=== PATIENT | male | born 1955 | race Caucasian/White ===

== ENCOUNTER 2019-08-02 10:45 | Inpatient (IN) | payer MEDICARE, BC ==
[~2019-08-02] VITALS: Ht 177.8 cm; Wt 89.8 kg
--- OUTSIDE RECORDS SUMMARY | ~2019-08-02 | XMS | Clinical Summary ---
Demographics + + + | Address | [address] | | | [place] [address] | + + + | Home Phone | | + + + | Preferred Language | Unknown | + + + | Marital Status | | + + + | Moravian Affiliation | Unknown | + + + | Race | Unknown | + + + | Ethnic Group | Unknown | + + + Author + + + | Author | [facility] | | | and [place] | + + + | Organization | [facility] | | | and [place] | + + + | Address | Unknown | + + + | Phone | Unavailable | + + + Support + + +---------+ + | Name | Relationship | Address | Phone | + + +---------+ + | None,Listed | ECON | Unknown | | + + +---------+ + Care Team Providers + +------+ + | Care Rating Specialist Name | Role | Phone | + +------+ + | Elmo Jaimes MD | PCP | | + +------+ + Allergies Not on File Medications Not on file Active Problems Not on file Social History + +-------+ +--------+------+ | Tobacco Use | Types | Packs/Day | Years | Date | | | | | Used | | + +-------+ +--------+------+ | Never Assessed | | | | | + +-------+ +--------+------+ + + + | Sex Assigned at | Date Recorded | | | | + + + | Not on file | | + + + + + + + | Job Start Date | Occupation | Industry | + + + + | Not on file | Not on file | Not on file | + + + + + + + + | Travel History | Travel Start | Travel End | + + + + + + | No recent travel history available. | + + Last Filed Vital Signs Not on file Plan of Treatment + + + + + | Health Maintenance | Due Date | Last Done | Comments | + + + + + | Vaccine: | | | | | Dtap/Tdap/Td (1 - | 2 | | | | Tdap) | | | | + + + + + | Vaccine: Zoster (1 | | | | | of 2) | 3 | | | + + + + + | Vaccine: | | | | | Pneumococcal 65+ | 8 | | | | Low/Medium Risk (1 | | | | | of 2 - PCV13) | | | | + + + + + | Vaccine: Influenza | | | | | (#1) | 9 | | | + + + + + Results Not on filefrom Last 3 Months Insurance +-------+--------+ +--------+-------+---------+------+ | Payer | Benefi | Subscriber | Effect | Phone | Address | Type | | | t Plan | ID | jasmin | | | | | | / | | Dates | | | | | | Group | | | | | | +-------+--------+ +--------+-------+---------+------+ | BCBS | BCBS | [id number] | 10/02/19 | | | PPO | | | [place] | | 16-Pre | | | | | | L FEP | | sent | | | | +-------+--------+ +--------+-------+---------+------+ + +--------+ +--------+ + + | Guarantor Name | Accoun | Relation to | Date | Phone | Billing Address | | | t Type | Patient | of | | | | | | | | | | + +--------+ +--------+ + + | Michael Mcpherson | Person | Self [birth year] | [address] | | | al/Fam | | 1955 | [phone] | [place] | | | n[place]ol | | | [address] (Home) | [phone] | + +--------+ +--------+ + + Advance Directives Patient has advance care planning documents on file. For more information, please contact:[facility] [place] [address]"
--- OUTSIDE RECORDS SUMMARY | ~2019-08-02 | XMS | Clinical Summary ---
Demographics + + + | Address | [address] | | | [place] [address] | + + + | Home Phone | | + + + | Preferred Language | Unknown | + + + | Marital Status | | + + + | Advent Affiliation | Unknown | + + + | Race | Unknown | + + + | Ethnic Group | Unknown | + + + Author + + + | Author | [facility] | | | and [place] | + + + | Organization | [facility] | | | and [place] [...] Team Providers + +------+ + | Care Head Transfer Clerk Name | Role | Phone | + [...] +-------+--------+ +--------+-------+---------+------+ | BCBS | BCBS | [id number] | 10/02/19 | | | PPO | [...] Person | Self | [birth year] | [id number] | | | al/Fam | | 1955 | [phone] | [place] | | | nichol | | | [address] (Home) | [phone] | + +--------+ +--------+ + + Advance Directives Patient has advance care planning documents on file. For more information, please contact:[facility] [place] [address]"
--- OUTSIDE RECORDS SUMMARY | ~2019-08-02 | XMS | Clinical Summary ---
Demographics + + + | Address | [address] | | | [place] [address] | + + + | Home Phone | | + + + | Preferred Language | Unknown | + + + | Marital Status | | + + + | Muslim Affiliation | Unknown | + + + | Race | Unknown | + + + | Ethnic Group | Unknown | + + + Author + + + | Author | [facility] | | | and [place] | + + + | Organization | [facility] | | | and [place] | [...] Team Providers + +------+ + | Care Mold Design Engineer Name | Role | Phone | + [...] +-------+--------+ +--------+-------+---------+------+ | BCBS | BCBS | [id number] | 10/02/19 | | | PPO | [...] Person | Self | [birth year] | [address] | | | al/Fam | | 1955 | [phone] | [place] | | | n[place]ol | | | 7 (Home) | [phone] | + +--------+ +--------+ + + Advance Directives Patient has advance care planning documents on file. For more information, please contact:[facility] [place] [address]"
[2019-08-02] MEDS ORDERED: ZITHROMAX250 MG PO (10:57)
[2019-08-02] MEDS ORDERED: CEFUROXIME500 MG PO (10:57)
[2019-08-02] MEDS ORDERED: LEVOTHYROXINE88 MCG PO (10:57)
--- NOTE | 2019-08-02 14:45 | NUR ---
PATIENT ARRIVED TO ROOM 127 VIA STRETCHER WITH HIS AT THE BEDSIDE. PATIENT WAS ABLE TO STAND AND TRANSFER WITH NO ASSIST. OXYGEN AT 3L NC WITH SPO2 AT 94%. WILL CONTINUE TO CLOSELY MONITOR.
--- NOTE | 2019-08-02 15:30 | NUR ---
PATIENT RESTING IN BED. FOOD ORDERED AND AT THE BEDSIDE. MEDICATIONS ADMINISTERED WITH NO ISSUES. ASSESSMENT COMPLETED. PATIENT BREATH SOUNDS CLEAR AND DIMINISHED IN BASES. PATIENT STATED THAT HE WAS A FORECLOSURE [place] FOR OVER 40 YEARS. PATIENT IS CURRENTLY ON 3L NC WITH SPO2 AT 92%. BOWEL TONES ACTIVE. PATIENTS EXTREMITIES COLD AND PULSES ARE FAINT. PATIENT IS ALERT AND TALKATIVE. CALLED RT TO UPDATE THAT PATIENT HAS ORDERS. NO OTHER NEEDS AT THIS TIME. WILL CONTINUE TO CLOSELY MONITOR.
--- NOTE | 2019-08-02 15:59 | NUR ---
MED REC COMPLETED.
--- NOTE | 2019-08-02 17:00 | NUR ---
PATIENT UP TO THE BATHROOM WITH RN ASSIST. PATIENT IS STABLE ON HIS FEET, BUT HIS HR INCREASED TO 140'S WITH AMBULATION. PATIENT HAS INCREASED SOB WITH AMBULATIONS WELL. PT DNEIES DIZZINESS. URINE DARK AND FOUL SMELLING. UPDATED MD LOUIS OF RESULTS AND WILL COMPLETE ORTHOSTATIC VITAL SIGNS. NO OTHER NEEDS AT THIS TIME. ICE WATER AT THE BEDSIDE. PT DNEIES ANY DINNER AT THIS TIME. WILL CONTINUE TO CLOSELY MONITTOR.
--- NOTE | 2019-08-02 17:20 | NUR ---
CALLED MD LOUIS TO UPDATE ORTHOSTATIC VALUES. PER NEW ORDER FOR LR 1000MLS OVER 2 HOURS. WILL CONTINUE TO CLOSELY MONITOR. PATIENT RELAXING IN BED AT THIS TIME.
--- NOTE | 2019-08-02 18:44 | NUR ---
PATIENT RESTING IN BED AT THIS TIME. PATIENT DENIES ANY NEEDS. LIGHTS OUT TO ENCOURAGE REST. WILL CONTINUE TO CLOSELY MONITOR.
--- NOTE | 2019-08-02 19:50 | NUR ---
ASSESSMENT DONE. LUNGS HAVE CRACKLES JAIL UP WITH FEW COARSE SOUNDS ON LEFT SIDE. RESP SLIGHTLY LABORED WITH 3L/O2/NC. PT REPORTS FEELING "A LITTLE BIT BETTER I THINK" SINCE ARRIVAL TO THE HOSPITAL. PT C/O BEING COLD, WARM BLANKET PROVIDED. IVF BOLUS HAS JUST COMPLETED AND FLUIDS NOW RUNNING AT 125ML/HR. WILL CONT TO MONITOR. AT BEDSIDE.
--- NOTE | 2019-08-02 20:30 | NUR ---
DR LOUIS IN TO SEE PT
--- NOTE | 2019-08-02 22:19 | NUR ---
PT C/O INSOMNIA, CALL TO DR LOUIS ORDER GIVEN FOR 1MG MELATONIN.
--- NOTE | 2019-08-02 22:30 | NUR ---
PT GIVEN MELATONING. ASKED IF HE WOULD LIKE A NEB TX AND HE STATES YES, RESP SOMEWHAT LABORED AND O2 HAS BEEN TURNED UP TO 4L/O2/NC. RT IN TO GIVE TX AND PT REPORTS FEELING LESS SOB AFTER AND IS NOW READY TO TRY TO SLEEP. RESTING HR 107, RR 21 SPO2 92% ON 4L/NC.
--- NOTE | 2019-08-03 00:30 | NUR ---
PT CALLS TO REQUEST NEB TX. HAS NOT BEEN ABLE TO SLEEP. RT IN TO DO TX, PT REPORTS FEELING LESS SOB AFTER. ASSESSMEN UNCHANGED FROM EARLIER.
--- NOTE | 2019-08-03 02:30 | NUR ---
PT CALLS TO C/O NASAL CONGESTION REQUESTING NASAL SPRAY. GIVEN SALINE FLUSH TO HELP CLEAR NARES, ALSO PUT ON OXYMASK SPO2 WAS 88% ON 4L/NC/O2, SATS UP TO 90% 4L/OXYMASK. ALSO ASKED PT TO GET UP AND ATTEMPT TO VOID ALTHOUGH HE SAID HE DID NOT HAVE THE URGE. WAS ABLE TO STAND AT BEDSIDE AND VOID 300ML [place] URINE, HR UP TO 100 WHILE UP THEN BACK DOWN QUICKLY TO 85.
--- NOTE | 2019-08-03 03:20 | NUR ---
CALL TO DR LOUIS, UPDATED REGARDING URINE OUTPUT, VS AND PT OVERALL CONDITION, REQUEST FOR NASAL SPRAY FOR NASAL CONGESTION. ORDER GIVEN FOR FLONASE. PT INFORMED, AWAITING MED FROM [facility]PHARMACY.
--- NOTE | 2019-08-03 03:55 | NUR ---
RT IN TO DO NEB TX PER REQUEST
--- NOTE | 2019-08-03 06:18 | EKG ---
[facility] [address] [place] [address] Signed Normal sinus rhythm with sinus arrhythmia Normal ECG No previous ECGs available Confirmed by LARRY LOUIS MD ([id number]) on 08/03/2019 6:17:49 AM Electronically Signed By: LARRY LOUIS MD 08/03/19 0618 PATIENT NAME: BECCA PRICE Electrocardiogram DATE OF : 51 PHYSICIAN: LARRY LOUIS MD REPORT #: [id number] REPORT IS CONFIDENTIAL AND NOT TO BE RELEASED WITHOUT AUTHORIZATION
--- NOTE | 2019-08-03 07:30 | NUR ---
PATIENT SHIFT REPORT RECIEVED FROM GREENHOUSE OR NURSERY TRANSPLANTER RN. PATIENT IS RESTING IN BED AT THIS TIME ON OXYMASK 4L. PATIENT IS TOLERATING WELL. PER REPORT PATIENT HAS HAD INCREASED CONGESTION THAT IS IRRITATING THE PATIENT. WILL CONTINUE TO CLOSELY MONITOR.
--- NOTE | 2019-08-03 07:53 | NUR ---
PATIENT REQUESTING A NEB TREATMENT, RN NOTIFIED. PATIENT ORDERED BREAKFAST AND PERFORMED AM CARE. CALL LIGHT IN REACH. NO OTHER NEEDS AT THIS TIME.
--- NOTE | 2019-08-03 08:38 | NUR ---
PATIENT STOOD AT THE EDGE OF THE BED TO VOID IN URINAL, PATIENT BACK IN BED NOW WITH CALL LIGHT IN REACH, NO OTHER NEEDS AT THIS TIME.
--- NOTE | 2019-08-03 09:30 | NUR ---
PATIENT RESTING IN BED. PATIENT STATES "I FEEL A LITTLE BIT BETTER THIS MORNING, BUT NOT MUCH. ASSESSMENT COMPLETED. PATIENT BREATH SOUNDS CLEAR ON LEFT AND DIMINISHED. CRACKLES NOTED THROUGHOUT THE RIGHT SIDE. OXYMASK IN PLACE AT 4L WITH SPO2 93%. BOWEL TONES ACTIVE. EXTREMITIES WARM, PULSES STRONG. PATIENT IS VERY TALKATIVE WITH STAFF TALKING ABOUT HIS LOVE FOR THE OUTDOORS. WILL CONTINUE TO CLOSELY MONITOR.
--- NOTE | 2019-08-03 10:29 | NUR ---
PATIENT RESTING IN BED WITH HIS AT THE BEDSIDE. ALL QUESTIONS ANSWERED. PATIENT DENIES ANY NEEDS AT THIS TIME.
--- NOTE | 2019-08-03 10:54 | NUR ---
PATIENT CALLED FOR ASSISTANCE TO VOID. PATIENT STOOD AT THE EDGE OF THE BED AND VOIDED WITH A URINAL. PATIENT BACK IN BED, CALL LIGHT IN REACH. FAMILY IN ROOM. NO OTHER NEEDS AT THIS TIME.
--- NOTE | 2019-08-03 11:30 | NUR ---
PATIENT RESTING IN BED AT THIS TIME. ASSESSMENT COMPLETED AND REMAINS UNCHANGED AT THIS TIME. WILL CONTINUE TO CLOSELY MONITOR. NO OTHER NEEDS AT THIS TIME.
--- NOTE | 2019-08-03 13:30 | NUR ---
PATIENT CHATING WITH THIS RN ABOUT HIS LOVE FOR THE OUTDOORS. PATIENT DNEIES WANTING TO EAT AT THIS TIME AND STATES HE IS STILL FEELING ABOUT THE SAME. WILL CONTINUE TO CLOSELY MONITOR. NO OTHER NEEDS AT THIS TIME.
--- NOTE | 2019-08-03 15:31 | NUR ---
PATIENT RESTING IN BED. GAVE PRN TYLENOL FOR GENERALIZED PAIN AND PSEUDAPHED FOR CONGESTION. PATIENT IS VERY TALKATIVE. NOTED PATIENTS RR IS 25-32 PRIOR TO ENTERING ROOM. PATIENT DENIES FEELING ANY DIFFERENT THAN EARLIER IN THE SHIFT. ALL OTHER VIALS REMAIN STABLE. WILL CONTINUE TO CLSOELY MONITOR.
--- NOTE | 2019-08-03 17:30 | NUR ---
PATIENT SPO2 DECREASED TO MID 80'S. RT AND MD DEJESUS IN TO SEE PATIENT D/T OXYMASK UP TO 8L FROM 4L EARLIER IN THE SHIFT. PATIENTS HR AND RR INCREASED WELL. PATIENT DOWN FOR CHEST CT WITH THIS R AND TOLERATED WELL. WILL AWAIT RESULTS FOR UPDATED PLAN OF CARE. PATIENT REMAINS ON 8L OXYMASK AT THIS TIME WITH SPO2 92%. RR 26-32. HR 100. WILL CONTINUE TO CLOSELY MONITOR.
--- NOTE | 2019-08-03 18:59 | NUR ---
MD DEJESUS CALLED. NEW ORDERS TO START HIGH FLOW OXYGEN AND STEROID MEDICATION. MD WILL COME UPDATE PATIENT AND FAMILY ON RESULTS OF CHEST CT. WILL CONTINUE TO CLOSELY MONITOR. PATIENT IS RESTING IN BED AT THSI TIME. RT SET UP HIGH FLOW AT THE BEDSIDE, PATIENT TOLERATING WELL.
--- NOTE | 2019-08-03 19:36 | NUR ---
SHIFT REPORT RECEIVED. PATIENT RESTING IN BED. FAMILY AT BEDSIDE. SPECIMEN CUP PROVIDED WITH VERBAL INSTRUCTIONS FOR SPUTUM COLLECTION. PATIENT VERBALIZED UNDERSTANDING. DENIES FURTHER NEEDS.
--- NOTE | 2019-08-03 20:00 | NUR ---
PATIENT REPORTS DISCOMFORT WITH VAPOTHERM HIGH FLOW AND LARGER NASAL CANULA. DENIES FEELING SOB. 02 SAT 90% ON 70% FiO2. LUNGS ARE DIMINISHED THROUGHOUT WITH CRACKLES IN IVONNE BASES. PATIENT DENIES ANY OTHER CONCERNS. IS WANTING TO HAVE SLEEP MEDICATION AFTER RT ASSESSMENT. PATIENT UP TO BEDSIDE TO VOID, TOLERATED WELL. IV FLUIDS PER ORDER, SITE WNL.
--- NOTE | 2019-08-03 21:45 | NUR ---
PATIENT CONTINUES TO BE RESTLESS AND UNCOMFORTABLE. DENIES OFFERS FOR ROOM TEMP CHANGES, COOL WASH CLOTH, OR OPEN DOOR TO HELP PATIENT FEEL LESS WARM. TEMP LOW GRADE, ORAL 99.4 F. PATIENT DENIES FEELING ANY AFFECTS FROM SLEEP AID. DISCUSSED WITH DR. DEJESUS, NEW ORDERS RECEIVED AND VERIFIED VIA REPEAT BACK.
--- NOTE | 2019-08-03 22:05 | NUR ---
PATIENT UP TO BEDSIDE TO VOID. TOLERATES WELL. HR GOING FROM 95 TO 118 WITH ACTIVITY. PATIENT REPORTS THAT THE VAPOTERM "MUST BE WORKING, THIS IS THE BEST I'VE FELT IN A WHILE". ONE TIME DOSE OF SLEED MEDICATION PROVIDED. ENCOURAGED PATIENT TO REST.
--- NOTE | 2019-08-03 22:57 | NUR ---
PATIENT APPEARS TO BE SLEEP SOUNDLY. HOB ELEVATED. VAPOTHERM IN PLACE. O2 >90%
--- NOTE | 2019-08-04 01:00 | NUR ---
PATIENT APPEARED TO BE SLEEPING LIGHTLY, WOKE WHEN RN ENTERED ROOM. DENIES TOILETING NEEDS. VS STABLE. AFEBRILE, ORAL TEMP 98.0 F. LUNGS CONTINUE TO BE DIMINISHED WITH CRACKLES IN THE BASES. O2 SAT 90% ON 70% Fi02.
--- NOTE | 2019-08-04 02:05 | NUR ---
PATIENT UP TO VOID. BACK TO BED, USING TABLET AND DENIES THE ABILITY TO SLEEP ANYMORE. ENCOURAGED PATIENT TO REDUCE STIMULATION AND ATTEMPT TO REST.
--- NOTE | 2019-08-04 06:11 | NUR ---
LAB IN ROOM FOR BLOOD DRAW. PATIENT REPORTS FEELING BETTER THIS MORNING. DOES NOT APPEAR TO BE IN ANY RESPIRTORY DISTRESS. O2 SAT 91% ON 70% FiO2 VIA VAPOTHERM. PATIENT IS AFEBRILE, VS STABLE. LUNGS CONTINUE TO BE DIM THROUGHOUT WITH CRACKLES IN THE IVONNE BASES. PATIENT UP TO VOID AT BEDSIDE. TOLERATES WELL. FRESH ICE WATER PROVIDED. NO FURTHER NEEDS AT THIS TIME.
--- NOTE | 2019-08-04 07:30 | NUR ---
PATIENT RESTING IN BED ON VAPOTHERM AT THIS TIME. REPORT RECIEVED FROM VEHICLE FARE COLLECTOR RN. PATIENT STATES HE FEELS BETTER THIS AM AFTER COUGHING UP SOME PHLEGM EARLIER IN THE NIGHT. WILL CONTINUE TO CLOSELY MONITOR.
--- NOTE | 2019-08-04 09:00 | NUR ---
PATIENT RESTING IN BED ON VAPOTHERM A20L 70%FIO2. PATIENT SPO2 90-93%. PATIENT IS TOELRATING WELL. PATIENT STATES, "I AM FEELING A LITTLE BETTER THIS AM". PATIENT DOES NO HAVE MUCH OF AN APPETITE, ENSURE ORDERED. BOWEL TONES ACTIVE. PATIENTS BREATH SOUNDS ARE DIMINISHED AND CRACKLES NOTED THROUGHOUT. PATIENT RR 26. PATIENT IS ABLE TO STAND AT THE EDGE OF THE BED TO SE URINAL. PATIENTS HR 115 WITH STANDING AND BACK TO 80'S WHEN RESTING. MORNIGN CARES PROVIDED. PATIENT DENEIS ANY OTHER NEEDS AT THIS TIME. WILL CONTINUE TO CLOSELY MONITOR.
--- NOTE | 2019-08-04 10:57 | NUR ---
PATIENT RESTING IN BED AND VISITING WITH FRIENDS/FMAILY. PATIENT SPO2 96% AT THSI TIME. CONTINUED TO ENCOURAGE DEEP BREATHING AND COUGHING AND USING THE INSENTIVE SPIROMETER AND ACCAPELLA DEVICES. PATIENT IS AGREEABLE TO TREATMENT. WILL CONTINUE TO CLOSELY MONITOR.
--- NOTE | 2019-08-04 11:00 | NUR ---
PATIENT RESTING IN BED WITH FAMILY/FRIENDS AT BEDSIDE. PATIENT IS VERY TALKATIVE AT THIS TIME. FRESH WATER AT THE BEDSIDE. WILL CONTINUE TO CLOSELY MONITOR.
--- NOTE | 2019-08-04 11:39 | NUR ---
MD DEJESUS IN AND VISITED WITH PATIENT AND HIS FAMILY/FRIENDS. PATIENT APPEARS TO BE DOING BETTER THIS AM WITH CHANGES IN TREATMENT YESTERDAY EVENING. MD AND STAFF ENCOURAGED PATIENT TO USE INCENTIVE SPIROMETER AND AQAPELLA. PATIENT IS AGREEABLE TO TREATMENT AND PLAN OF CARE. WILL CONTINUE TO VAPOTHERM AT THIS TIME AND CLOSELY MONITOR AND TITRATE APPLICABLE.
--- NOTE | 2019-08-04 12:30 | NUR ---
THIS RN IN TO ASSIST PATIENT UP TO USE URINAL. PATIENT ABLE TO USE URINAL ON HIS OWN ONCE STANDING. PATIENT BACK TO BED. LUNCH AT THE BEDSIDE. FAMILY LEFT AT THIS TIME TO GO GET THEIR LUNCH. PATIENT DENEIS STOOL SOFTENER MEDICATION AT THIS TIME. PATIENT STATES HE NORAMLLY GOES EVERY 2-3 DAYS. WILL CONTINUE TO MONITOR. NO OTHER NEEDS AT THIS TIME.
--- NOTE | 2019-08-04 14:03 | NUR ---
MORE VISITORS IN TO SEE PATIENT. BROUGHT MORE CHAIRS IN FOR FRIENDS/FAMILY. PATIENT DENIES ANY NEEDS AT THIS TIME. FRESH WATER AT THE BEDSIDE. WILL CONTINUE TO CLOSELY MONITOR.
--- NOTE | 2019-08-04 16:00 | NUR ---
PATIENT ASSESSMENT COMPELTED AND REMAINS UNCHANGED FROM PRIOR ASSESSMENT. PATIENT RESITNG IN BED. ALL VISITORS LEFT AT THIS TIME. PATIENT ASSISTED TO BEDSIDE TO URINATE. PATIENT NOW BACK IN BED RESTING AT THIS TIME. FRESH WATER PROVIDED AT THE BEDSIDE. PATIENT STATED HE WAS GOING TO USE THE INCENTIVE SPIROMETER AND AQAPELLA. CONTINUED TO ENCOURAGE USE. NO OTHER NEEDS AT THIS TIME. WILL CONTINUE TO CLOSELY MONITOR.
--- NOTE | 2019-08-04 18:06 | NUR ---
THIS RN IN VISITING WITH PATIENT AND HIS FMAILY. VITALS COMPLETED. PATIENT IS VERY TALKATIVE THIS EVENING. PATIENT STATES HE IS STILL FEELING BETTER THAN WHEN HE CAME IN. NO OTHER NEEDS AT THIS ITME. WILL CONTINUE TO CLSOELY MONITOR.
--- NOTE | 2019-08-04 19:30 | NUR ---
PT AWAKE IN BED, PLAN OF CARE DISCUSSED WITH PT. DENIES NEEDS AT THIS TIME.
--- NOTE | 2019-08-04 20:45 | NUR ---
PT HAS JUST FINISHED NEB TX. ASSESSMENT DONE. CONT ON VAPOTHERM 20L/50% FIO2 SPO2 88-96% DEPENDING ON POSITIONING OF PT. MUCH LESS RESP EFFORT TONIGHT THAN LAST NIGHT. LUNGS HAVE LESS CRACKLES WELL, CRACKLES HEARD IN BASES AND FEW MIDWAY UP, FEW COARSE SOUNDS HEARD IN UPPER LOBES. PT DENIES PAIN OR NEEDS AT THIS TIME.
--- NOTE | 2019-08-04 21:30 | NUR ---
DR DEJESUS IN TO ROUND ON PT. DISCUSSED PLAN OF CARE WITH PT, ANSWERED QUESTIONS. FIO2 TURNED DOWN TO 50% THEN 40%, SATS DOWN TO 88% ON 40% SO TURNED BACK TO 50%.
--- NOTE | 2019-08-05 01:45 | NUR ---
RT IN TO CHECK ON PT, SPO2 88% SO FIO2 TURNED UP TO 60%.
--- NOTE | 2019-08-05 02:31 | NUR ---
PT CALLS REQUESTING TUMS OR ANTACID FOR "BURNING". TUMS GIVEN. UP TO VOID, HR UP TO 105 WHEN UP THEN DOWN TO 75 IN BED. WILL CALL IF TUMS DONT HELP.
--- NOTE | 2019-08-05 04:37 | NUR ---
UP TO VOID AND BACK TO BED. PT STATES "THAT ONE HURT THAT TIME, IT TOOK A LOT OUT OF ME". ALL VS REMAIN UNCHANGED. LUNGS HAVE FEW CRACKLES IN BASES AND COARSE SOUNDS MIDWAY UP. WILL CALL WITH NEEDS.
--- NOTE | 2019-08-05 04:39 | NUR ---
UP TO BS TO VOID THEN BACK TO BED. PT STATES "THAT ONE HURT, THAT TOOK A LOT OUT OF ME THAT TIME". HR WAS STEADY BUT RR UP TO 34 AFTER EXERTION WITH SHALLOW MILDLY LABORED RESP. SPO2 91% ON 60% FIO2. ASSESSMENT DONE, IV SITES FLUSHED. LUNGS CONT TO HAVE CRACKLES IN BASES BILAT WITH COARSE SOUNDS MIDWAY UP AND CLEAR IN UPPER LOBES. WILL CALL WITH FURTHER NEEDS, HAS NOT BEEN ABLE TO SLEEP SINCE 0200 AND WANTS TO TRY TO SLEEP MORE.
--- NOTE | 2019-08-05 05:30 | NUR ---
PT IS SLEEPING AND HAS ONLY HAD TWO HOURS OF SLEEP LAST NIGHT, WILL HAVE LAB RETURN IN AN HOUR SO THAT PT MAY CONTINUE TO SLEEP.
--- NOTE | 2019-08-05 08:00 | NUR ---
RT HER PROVIDED NEB TX, TALKED WITH PT TO CLUMP TREATMENTS AND NURSING ACTIVIES TOGETHER SO THAT HE CAN REST INBETWEEN. ORDER BKF AND ASSESSMENT COMPLETED.
--- NOTE | 2019-08-05 09:15 | NUR ---
PT ATE WELL AND HAS USED THE URINAL WELL. HE GETS UP TO THE BEDSIDE TO VOIDE AND DOES GET SOB AND DECREASED SPO2 TO 88%.
--- NOTE | 2019-08-05 10:58 | NUR ---
DR DEJESUS INTO SEE PT AT THIS TIME, DISCUSSED THE LACK OF SLEEPING. NEW ORDERS RECEIVED. PT IS ALSO AT THE BEDSIDE AT THIS TIME.
--- NOTE | 2019-08-05 12:44 | NUR ---
PT APPEARS TO BE ASLEEP AT THIS TIME, HEART RATE IN THE 80'S RESP RATE DECREASED TO THE TEENS' AND SPO2 INCREASED TO 96%. WHEN PT AWAKENS WILL COMPLETE ASSESSMENT. PT DID NOT SLEEP WELL LAST NIGHT.
--- NOTE | 2019-08-05 13:30 | NUR ---
PT TALKING WITH STAFF ABOUT HIS JOB AND WHAT DETAILS OF IT. LONG OF IT HE PROVIDED CATTLE ALLOTMENTS TO LOCAL CATTLE RANCHERS AND WRITERS YASH WAS ONE OF THE. DURING THIS CONVERSATION HIS SPO2 DID DECREAS TO 92%, BUT WAS ABLE TO MAINTAINE THE CONVERSATION. LUNCH ORDER FOR HIM AND HE DID EAT.
--- NOTE | 2019-08-05 13:59 | NUR ---
SPOKE WITH PATIENT IN ROOM. PATIENT LIVES WITH . PATIENT IS RETIRED BY [employer]. PATIENT USES NO DME. HE HAS A CPAP MACHINE FOR SNORING, BUT DOESN'T USE IT ANYMORE. PATIENT HAS STAIRS IN HOME BUT DENIES ANY PROBLEMS WITH THAT. PATIENT STILL DRIVES. HAS NO ISSUES GETTING TO DR APPOINTMENTS. PATIENT HAS A PCP IN [place]. DISCUSSED HE WILL NEED TO FOLLOW UP WITH THEM AFTER DISCHARGE. PATIENT PLANS TO RETURN HOME AT DISCHARGE, NO KNOWN BARRIERS TO DISCHARGE HOME AT THIS TIME. WILL FOLLOW NEEDED.
--- NOTE | 2019-08-05 15:24 | NUR ---
PT DID ADL'S AND THEN UP TO THE CHAIR AT THIS TIME. TOLERATING ACTIVITY WELL.
--- NOTE | 2019-08-05 16:32 | NUR ---
PT RMAINS UP IN THE CHAIR AND STATES "FEELING BETTER"
--- NOTE | 2019-08-05 17:24 | NUR ---
PT REMAINS UP IN THE CHAIR AND DR DEJESUS INTO SEE HIM AND DECREASED FIO2 TO 30% AND THE FLOW TO 20. PT SPO2 REMAINS 93% AT THIS TIME. ALSO HIS JUST CAME INTO VISIT.
--- NOTE | 2019-08-05 18:25 | NUR ---
PT REMAINS UP IN THE CHAIR EATTING DINNER AT THIS TIME. AND HIM ARE VISITNG, PT DENIES ANY C/O'S AT THIS TIME. WITH HIS FIO2 REMAINS AT 30% AND FLOW OF 20L'S. SPO2 93 TO 96% DEPENDING ON HOW MUCH TALKING HE IS DOING. HIS HEART RATE HAS MAINTAINED IN THE LOW 80 TO 90'S. PT IS COOPERATIVE WITH THE HOSPITAL ROUTINE AND USES HIS CALL LIGHT NEEDED.
--- NOTE | 2019-08-05 19:32 | NUR ---
REPORT RECEIVED FROM ZACK ESPINAL. PT IS UP IN CHAIR, TALKING ON PHONE. HR 80'S, RR 16 AND SPO2 93% WITH FIO2 30%.
--- NOTE | 2019-08-05 20:56 | NUR ---
PT UP TO BSC. ONE PERSON ASSIST REQUIRED. BACK IN BED, WARM BLANKETS PROVIDED. CALL LIGHT WITHIN REACH. DAUGHTER REMAINS AT BEDSIDE. NO FURTHER NEEDS AT THIS TIME.
--- NOTE | 2019-08-05 21:30 | NUR ---
HS MEDS GIVEN, TRAZADONE GIVEN. PT READY TO SLEEP FOR THE NIGHT.
--- NOTE | 2019-08-06 00:05 | NUR ---
PT SLEEPING, SNORING LIGHTLY. H 51, RR 26 SPO2 96% ON VAPOTHERM 20L/30% FIO2. WILL HOLD ASSESSMENT FOR NOW SO PT CAN SLEEP.
--- NOTE | 2019-08-06 02:52 | NUR ---
PT AWAKE NOW, ASSESSMENT UNCHANGED FROM EARLIER.
--- NOTE | 2019-08-06 05:00 | NUR ---
PT LYING IN BED, EYES CLOSED, APPEARS RESTFUL.
--- NOTE | 2019-08-06 07:00 | NUR ---
PT WANTING TO GET UP AND STRETCH. STATES HE HAS BEEN AWAKE MOST OF THE NIGHT USING COMPUTER AND PHONE. HAS BEEN ON FIO2 40% VAPOTHERM FOR MOST OF THE NIGHT WITH SPO2 87-94%. HEART RATE HAS BEEN OVERALL LOWER TONIGHT WITH RATE IN 50'S AT TIMES UP 80'S.
--- NOTE | 2019-08-06 07:30 | NUR ---
REPORT RECIEVED. PATIENT IS LAYING IN BED WITH HOB ELEVATED, O2 VIA VAPOTHEM IN PLACE AT 40% FIO2,20 LITERS. IS IN ROOM. PATIENT IS W/O C/O AT THIS TIME.
--- NOTE | 2019-08-06 08:00 | NUR ---
ASSESSMENT COMPLETE. LUNG WITH GOOD AIR EXCHANGE. TALKED WITH PATIENT ABOUT PLAN OF CARE FOR DAY, INDICATES UNDERSTANDING.
--- NOTE | 2019-08-06 10:00 | NUR ---
PATIENT ASKING TO STAND AT BEDSIDE. O2 SOURCE CHANGED TO OXYMASK AT 5 LITERS. PATIENT DENIES INCREASED SHORTNESS OF BREATH. DOING STRETCHES AT BEDSIDE. PATIENT IS VERY TALKATIVE. STATES HE IS FEELING MUCH BETTER TODAY.
--- NOTE | 2019-08-06 10:15 | NUR ---
HR TO 131 UPON AMBULATING TO BATHROOM. DENIES INCREASED SHORTNESS OF BREATH, CAN FEEL HEART PALPATIONS, DENEIS CHEST PAIN.
--- NOTE | 2019-08-06 11:15 | NUR ---
DR. DEJESUS HERE TO SEE PATIENT. O2 FROM 5 L VIA OXYMASK TO [address] DEJESUS, THEN TO ROOM AIR. WILL CONTINUE TO MONITOR.
--- NOTE | 2019-08-06 15:30 | NUR ---
NAPPING, O2 SAT TO 88, NO DISTRESS NOTED.
--- NOTE | 2019-08-06 16:00 | NUR ---
In to speak with pt. He is resting in bed. States he is feeling better. 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 Feels he can dc safely to home with his when he has improved.
--- NOTE | 2019-08-06 17:30 | NUR ---
DR. DEJESUS HERE TO SEE PATIENT. ORDERS RECIEVED TO MED-SURG. PATIENT SITTING AT BEDSIDE VISITING WITH . CYDNEY SHORTNESS OF BREATH. REMAINS ON ROOM AIR.
--- NOTE | 2019-08-06 18:02 | NUR ---
WILL REMAIN IN ICU HOUSE CONVIENCE.
--- NOTE | 2019-08-06 18:33 | NUR ---
HAS OCC DRY TIGHT COUGH. NO FUTHER CHANGES.
--- NOTE | 2019-08-06 19:33 | NUR ---
REPORT TO NEXT SHIFT. NO FUTHER CHANGES.
--- NOTE | 2019-08-06 20:02 | NUR ---
REPORT RECEIVED FROM LELE ESPINAL. PT IS SITTING IN BED TALKING TO ON ROOM AIR SPO2 93% WITH RESP EVEN AND UNLABORED.
--- NOTE | 2019-08-06 20:40 | NUR ---
DR DEJESUS IN TO ROUND ON PT AND DISCUSS PLAN OF CARE. PT UP TO BR AND THEN BACK TO BED ON ROOM AIR, SPO2 WAS 98%. PT READY TO SLEEP, TRAZADONE GIVEN AND RT IN TO DO MILES TX.
--- NOTE | 2019-08-07 | NUR ---
PT HAS BEEN SLEEPING/SNORING LIGHTLY MAINTAINING O2 SATS ON ROOM AIR ABOVE 90%
--- NOTE | 2019-08-07 04:30 | NUR ---
PT AWAKE IN BED, STATES THIS HAS BEEN THE BEST NIGHTS SLEEP SINCE HES BEEN HERE. UP TO USE BATHROOM, SPO2 98% ON ROOM AIR WITH ACTIVITY.
--- NOTE | 2019-08-07 07:30 | NUR ---
REPORT RECIEVED. UP TO BR TO HAVE STOOL, BACK TO BED WITH ASSIST.
--- NOTE | 2019-08-07 08:00 | NUR ---
ASSESSMENT DONE. TALKED WITH PATIENT ABOUT PLAN OF CARE FOR DAY, IS UNDERSTANDING. TOOK BREAKFAST WELL. IS AT BEDSIDE.
--- NOTE | 2019-08-07 10:00 | NUR ---
C/O INCREASED LUNG IRRITATION, COUGHING AFTER UISNG I.S. AND ACEPELLA. REQUESTED BREATHING TREATMENT. RT NOTIFIED. PATIENT IS SOMEWHAT TENSE TODAY. LUNGS SOUND CLEAR WITH GOOD AIR EXCHANGE.
--- NOTE | 2019-08-07 11:33 | NUR ---
DR. DEJESUS HERE TO SEE PATIENT.
--- NOTE | 2019-08-07 11:57 | NUR ---
SITTING UP IN BED FOR LUNCH. PATIENT IS AWARE OF TRANSFER TO MED-SURG AFTER LUNCH.
--- NOTE | 2019-08-07 12:45 | NUR ---
REPORT TO MED-SURG. PATIENT TOOK LUNCH WELL.
--- NOTE | 2019-08-07 13:03 | NUR ---
In to speak with pt. He states he has an irritated cough today and is concerned with going home. He state when he goes home he will rest, but will do chores of feeding horses and checking water troughs. Dr. Bautista updated.
--- NOTE | 2019-08-07 13:15 | NUR ---
AMBULATED TO MED-SURG ACCOMPY BY RN AND STUDENT NURSE. OXIMETER ON, O2 SAT 97. HR-75. DENIES SHORTNESS OF BREATH, NO INCREASED WORK OF BREATHING. TALKING W/O PROBLEMS.
--- NOTE | 2019-08-07 13:20 | NUR ---
64YR OLD MAN TRANSFERRED FROM CCU TO ROOM 109. PT IS ALERT, ORIENTED, AMBULATED LOOP AROUND NURSES STATION X2 BEFORE GOING TO ROOM. SET UP TO TAKE A SHOWER AT THIS TIME. ASSESSMENT COMPLETED, DENIES FURTHER NEEDS.
--- NOTE | 2019-08-07 13:30 | NUR ---
SETS UP BATHROOM FOR SHOWER. PATIENT IS GOING TO BE TRANSFERRED FROM CCU
--- NOTE | 2019-08-07 14:20 | NUR ---
PT HAS VISITOR-SEEMS VERY ENGAGED IN CONVERSATION. WILL RETURN A LATER TIME
--- NOTE | 2019-08-07 14:29 | NUR ---
VITAL SIGNS DONE BY STUDENT RN AND RECORDED BY THIS FOLDER AND NOTCHER. I&O DONE BY MONICA.
--- NOTE | 2019-08-07 14:41 | NUR ---
PT COMPLETED SHOWER AND STATES HE "FEELS MUCH BETTER". UP INDEP IN ROOM, LOOKING AT MENU TO ORDER BREAKFAST.
--- NOTE | 2019-08-07 17:16 | NUR ---
ATE 100% OF DINNER, REMAINS INDEP IN ROOM, NO SOB, OCCASIONAL LOOSE COUGH. ROOM AIR, SITTING UP ON SOFA IN ROOM WITH FEET ELEVATED. STATES HE IS TIRED OF BEING IN BED. DENIES ANY NEEDS.
--- NOTE | 2019-08-07 17:30 | NUR ---
PATIENT SITTING UP IN CHAIR. VITAL SIGNS AND I&O DONE. CALL LIGHT WITHIN REACH. NO OTHER NEEDS AT THIS TIME
--- NOTE | 2019-08-07 20:01 | NUR ---
RECEIVED REPORT FROM DAY SHIFT RN. PATIENT IS RESTING IN COUCH VISITING WITH . ICE CHIPS AND FRESH ICE WATER PROVIDED. NO FURTHER NEEDS NOTED. CALL LIGHT IN REACH.
--- NOTE | 2019-08-07 20:57 | NUR ---
PATIENT ASSESEMENT COMPLETED. PATIENT IS RESTING ON COUCH WITH FEET UP IN CHAIR. PATIENT DENIES ANY PAIN OR SOB. PATIENTS VITALS TAKEN AND RECORDED. PATIENTS INTAKE AND OUPUT RECORDED. PATIENT PROVIDED WITH FRESH ICE CHIPS. PATIENT REMAINS ON RA. PATIENT REFUSES EVENING SENNA. EDUCATED PATIENT ON BOWEL CARE. PATIENT VERBALIZES UNDERSTANDING. PATIENT HAD X2 BMS TOADY AND CONTINUES TO REFUSE SENNA. PATIENT DENIES ANY FURTHER NEEDS. CALL LIGHT IN REACH.
--- NOTE | 2019-08-07 23:23 | NUR ---
PATIENT IS RESTING IN BED WITH EYES CLOSED. BREATHING IS EVEN AND UNLABORED, RR 18. CALL LIGHT IN REACH.
--- NOTE | 2019-08-08 01:02 | NUR ---
PATIENT IS RESTING IN BED WITH EYES CLSOED, RR 17. CALL LIGHT IN REACH.
--- NOTE | 2019-08-08 02:59 | NUR ---
PATIENT IS RESTING IN BED WITH EYES CLOSED, RR 17. CALL LIGHT IN REACH. BREATHING IS EVEN AND UNLABORED.
--- NOTE | 2019-08-08 04:30 | NUR ---
PATIENT CALLED FOR ICE CHIPS. UPON ENTERING ROOM PATIENT APPEARED SOB. PATIENTS OXYGEN CHECKED AND IT WAS 96% ON RA. PATIENT STATED "IT IS ALWAYS ROUGH IN THE MORNING". RT IN ROOM TO ADMINISTER NEB. PATIENT DENIES ANY FURTHER NEEDS. CALL LIGHT IN REACH.
--- NOTE | 2019-08-08 04:42 | NUR ---
PATIENT RESTED WELL THROUGHOUT THE SHIFT. PATIENT IS ON A REGULAR DIET. INDEPENDENT IN THE ROOM. PATIENTS IV IS SL. PATIENT RECEIVED PRN NEB X1 FOR SOB AFTER A COUGHING SPELL. PATIENT IS ON RA. PATIENT IS AAOX3 AND USES CALL LIGHT APPROPRIATELY.
--- NOTE | 2019-08-08 05:45 | NUR ---
PATIENT IS RESTING IN BED ON HIS CELLPHONE. PATIENT DENIES ANY NEEDS. CALL LIGHT IN REACH.
--- NOTE | 2019-08-08 06:43 | NUR ---
PATIENT IS RESTING IN BED READING. MORNING MEDICAITON GIVEN PER ORDER. PATIENT DENIES ANY SOB AND REMAINS ON RA. FRESH ICE CHIPS PROVIDED. NO NEEDS NOTED. CALL LIGHT IN REACH.
--- NOTE | 2019-08-08 07:20 | NUR ---
PATIENT SITTING ON COUCH WITH LEGS ELEVATED, ALERT AND ORIENTED. REPORT RECEIVED, ORDERS ACKNOWLEDGED. POC DISCUSSED WITH PATIENT, QUESTIONS ANSWERED. PATIENT ON RA, INDEPENDENT IN THE ROOM. NO FURTHER NEEDS AT THIS TIME, CALL LIGHT WITHIN REACH.
--- NOTE | 2019-08-08 08:30 | NUR ---
PATIENT AMBULATED FROM TOILET TO BED INDEPENDENTLY. AM MEDICATIONS GIVEN, ASSESSMENT COMPLETE. LUNG SOUNDS CLEAR, DYSPNEA WITH EXERTION. IV ABX RUNNING AT 100 MLS/HR, IV PATENT. DENIES FURTHER NEEDS AT THIS TIME, CALL LIGHT WITHIN REACH.
--- NOTE | 2019-08-08 10:15 | NUR ---
DR. DEJESUS IN ROOM DISCUSSING POC WITH PATIENT. IV ABX HUNG AT 200 MLS/HR. WATER REFRESHED, NO FURTHER NEEDS. CALL LIGHT WITHIN REACH.
[2019-08-08] MEDS ORDERED: PREDNISONE20 MG PO (10:20)
[2019-08-08] MEDS ORDERED: PREDNISONE10 MG PO (10:21)
[2019-08-08] MEDS ORDERED: PREDNISONE5 MG PO (10:22)
[2019-08-08] MEDS ORDERED: VENTOLIN HFA18 GM INH (10:23)
--- NOTE | 2019-08-08 11:08 | NUR ---
Spoke with Michael, plans on going home today. Clarified with Dr. Bautista, pt will not need a nebulizer. Pt. denies concerns for going home today, denies need for DME.
--- NOTE | 2019-08-08 11:58 | NUR ---
DISCHARGE INSTRUCTIONS GIVEN, ALL QUESTIONS AND CONCERNS ANSWERED. PATIENT VERBALIZED UNDERSTANDING OF FOLLOW UP APPOINTMENT. VITAL SIGNS TAKEN, IV D/C'D. ALL PERSONAL BELONGINGS COLLECTED. PATIENT LEFT UNIT INDEPENDENTLY AMBULATING WITH AND NURSING STAFF.
== END 2019-08-08 12:02 | disposition home or self-care (01) | DRG 196 ==
LOC: ED 10:45 → CCU 10:47 → MS 08-07 13:20
PROVIDERS: ADMIT Internal Medicine
DX: J67.9 Hypersensitivity pneumonitis due to unspecified organic dust (principal); J96.01 Acute respiratory failure with hypoxia; J18.9 Pneumonia, unspecified organism; E83.42 Hypomagnesemia; E03.9 Hypothyroidism, unspecified; I10 Essential (primary) hypertension; Z79.899 Other long term (current) drug therapy
CPT/HCPCS: 36415; 71045; 71260; 80048; 80053; 83605; 83735; 83880; 84484; 85025; 86140; 86331; 86606; 87040; 87070; 87205; 87260; 87275; 87276; 87279; 87280; 87449; 87899; 93005; 93010; 94640; 94667; 94668; 94760; 94799; 96365; 96368; 99285-25; J0696; J1650; J1956; J2930; J3475; J7121; J7512; Q9967

== ENCOUNTER 2019-11-08 19:48 | Emergency (ER) | payer MEDICARE, BC ==
[~2019-11-08] VITALS: Ht 177.8 cm; Wt 83.9 kg
[~2019-11-08 19:48] MED LIST: CEFUROXIME500 MG PO; LEVOTHYROXINE88 MCG PO; PREDNISONE10 MG PO; PREDNISONE20 MG PO; PREDNISONE5 MG PO; VENTOLIN HFA18 GM INH; ZITHROMAX250 MG PO
[2019-11-08] MEDS ORDERED: FLOVENT HFA12 G1 INH (19:58)
[2019-11-08] MEDS ORDERED: ATORVASTATIN CA10 MG PO (19:59)
--- NOTE | 2019-11-09 07:55 | EKG ---
[facility] [address] [place], [place] [address] Signed Normal sinus rhythm Left axis deviation Abnormal ECG When compared with ECG of 02-AUG-2019 10:49, No significant change was found Confirmed by ROXANNA FARRELL MD ([id number] on 11/09/2019 7:54:50 AM Electronically Signed By: ROXANNA FARRELL MD 11/09/19 0755 PATIENT NAME: BECCA PRICE SUZANNE Electrocardiogram DATE OF : 51 PHYSICIAN: ROXANNA FARRELL MD REPORT #: [id number] REPORT IS CONFIDENTIAL AND NOT TO BE RELEASED WITHOUT AUTHORIZATION
== END 2019-11-08 23:13 | disposition home or self-care (01) ==
LOC: ED 19:48
DX: R06.00 Dyspnea, unspecified (principal); R53.1 Weakness; K80.20 Calculus of gallbladder without cholecystitis without obstruction; Z79.899 Other long term (current) drug therapy
CPT/HCPCS: 71045; 76705; 80053; 81001; 83690; 83735; 83880; 84484; 85025; 85379; 85610; 85730; 93005; 93010; 96360; 99285-25; J7030

== ENCOUNTER 2019-11-24 09:39 | Emergency (ER) | payer MEDICARE, BC ==
[~2019-11-24] VITALS: Ht 177.8 cm; Wt 83.9 kg
[~2019-11-24 09:39] MED LIST changes: +ATORVASTATIN CA10 MG PO; +FLOVENT HFA12 G1 INH
--- OUTSIDE RECORDS SUMMARY | 2019-11-24 09:42 | XMS ---
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 [facility] VISIT COUNT (12 MO.) [address] [place] [address] TOTAL 3 NOTE: Visits indicate total known visits. ED/UCC VISIT TRACKING (12 MO.) 11/24/2019 09:39 [facility] [place] TYPE: Emergency COMPLAINT: - WEAKNESS 11/08/2019 19:49 [facility] [place] TYPE: Emergency COMPLAINT: - BREATHING PROBLEMS/CONGESTION DIAGNOSES: - Shortness of breath - Other terminal gauger (current) drug therapy - Calculus of gallbladder w/o cholecystitis w/o obstruction - Weakness - Dyspnea, unspecified 08/02/2019 10:46 [facility] [place] TYPE: Emergency COMPLAINT: - SOB, POSS POISONING INPATIENT VISIT TRACKING (12 MO.) 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
[2019-11-24] MEDS ORDERED: MONTELUKAST SOD10 MG PO (09:51)
[2019-11-24] MEDS ORDERED: FLUTICASONE PRO16 GM NAS (09:51)
--- NOTE | 2019-11-24 12:06 | EKG ---
[facility] [address] [place] [address] Signed Sinus tachycardia with premature atrial complexes Left axis deviation Abnormal ECG When compared with ECG of 08-NOV-2019 20:10, premature atrial complexes are now present Confirmed by ROXANNA FARRELL MD ([id number] on 11/24/2019 12:06:00 PM Electronically Signed By: ROXANNA FARRELL MD 11/24/19 1206 PATIENT NAME: BECCA PRICE SUZANNE Electrocardiogram DATE OF : 51 PHYSICIAN: ROXANNA FARRELL MD REPORT #: [id number] REPORT IS CONFIDENTIAL AND NOT TO BE RELEASED WITHOUT AUTHORIZATION
== END 2019-11-24 13:06 | disposition short-term general hospital (02) ==
LOC: ED 09:39
DX: A41.9 Sepsis, unspecified organism (principal); Z79.899 Other long term (current) drug therapy; E03.9 Hypothyroidism, unspecified
CPT/HCPCS: 71045; 71260; 74177; 80053; 81001; 83605; 83690; 85025; 85379; 87502; 93005; 93010; 96361; 99285-25; A9270; J0696; J3370; J7030; J7060; Q9967

== ENCOUNTER 2020-12-16 19:12 | Emergency (ER) | payer OTHER, MEDICARE, BC ==
[~2020-12-16] VITALS: Ht 177.8 cm; Wt 88.0 kg
[~2020-12-16 19:12] MED LIST changes: +FLUTICASONE PRO16 GM NAS; +MONTELUKAST SOD10 MG PO
--- OUTSIDE RECORDS SUMMARY | 2020-12-16 19:14 | XMS ---
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 [place] VISIT COUNT (12 MO.) 1 [facility] TOTAL 1 NOTE: Visits indicate total known visits. ED/UCC VISIT TRACKING (12 MO.) 12/16/2020 19:12 [facility] [place] TYPE: Emergency COMPLAINT: - L PINKY FINGER SMASHED INPATIENT VISIT TRACKING (12 MO.) No inpatient visits to display in this time frame [email or web address]
[2020-12-16] MEDS ORDERED: PREDNISONE10 MG PO (19:40)
[2020-12-16] MEDS ORDERED: TAMSULOSIN HCL0.4 MG PO (19:40)
[2020-12-16] MEDS ORDERED: MYCOPHENOLATE250 MG PO (19:41)
== END 2020-12-16 21:31 | disposition home or self-care (01) ==
LOC: ED 19:12
DX: S61.217A Laceration without foreign body of left little finger without damage to nail, initial encounter (principal); W23.1XXA Caught, crushed, jammed, or pinched between stationary objects, initial encounter; Z88.5 Allergy status to narcotic agent; Z79.899 Other long term (current) drug therapy; Z79.52 Long term (current) use of systemic steroids
CPT/HCPCS: 12001; 73140; 99283-25